=== PATIENT | female | born 1995 ===

== ENCOUNTER 2017-09-23 18:06 | Emergency (ER) | payer MEDICAID, OTHER ==
[2017-09-23 18:07] VITALS: BMI 21.9
[2017-09-23 18:17] VITALS: RESP 18; TEMP 98.2; O2SAT 100
[2017-09-23 18:30] VITALS: BP 106/79; PULSE 78
[2017-09-23] MEDS ORDERED: Morphine 4 MG/ML VIAL IVP STA (19:02)
[2017-09-23] MEDS ORDERED: Morphine 4 MG/ML VIAL ONE (19:12)
--- NOTE | 2017-09-23 19:53 | ED PDOC ---
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 Chest pain is located mostly on the left side. Associated with dizziness, nausea, vomiting, and difficulty taking a deep breath. Patient reports that she was seen in the ED one year ago for similar symptoms and was diagnosed with low potassium. Otherwise: (-) radiation, (-) diaphoresis, (-) pleuritic component, (-) ripping or tearing quality, (-) positional component, ( -) exertional component, (-) syncope, (-) calf swelling/pain, (-) neuro deficits , (-) fever, (-) cough, (-) trauma, (-) abdominal pain, (-) back pain, (-) recent travel. Of Note: The only medication that patient takes at home is injectable OCP once every 3 months. Past Medical History Reviewed: Historical Data, Nursing Documentation, Vital Signs Vital Signs: Last Vital Signs Temp 98.2 F 09/23/17 18:16 Pulse 78 09/23/17 18:28 Resp 18 09/23/17 18:16 BP 106/79 09/23/17 18:28 Pulse Ox 100 09/23/17 20:14 - Medical History PMH: Asthma Denies: Gastritis - Family History Family History: States: Unknown Family Hx Other Family History: Patient's father has heart disease - Immunization History Hx Tetanus Toxoid Vaccination: No Hx Influenza Vaccination: No Hx Pneumococcal Vaccination: No - Home Medications Home Medications: Ambulatory Orders Medication Instructions Recorded No Known Home Med 08/29/17 - Allergies Allergies/Adverse Reactions: Allergies Allergy/AdvReac Type Severity Reaction Status Date / Time amoxicillin Allergy RASH Verified 09/06/16 13:13 chicken derived Allergy Verified 08/29/17 15:24 Review of Systems ROS Statement: Except As Marked, All Systems Reviewed And Found Negative Constitutional: Negative for: Fever Cardiovascular: Positive for: Chest Pain (left-sided, upper sternal). Negative for: Edema Respiratory: Positive for: Other (difficulty taking a deep breath). Negative for: Cough Gastrointestinal: Positive for: Nausea, Vomiting. Negative for: Abdominal Pain Musculoskeletal: Negative for: Back Pain, Leg Pain Neurological: Positive for: Dizziness Physical Exam - Reviewed Nursing Documentation Reviewed: Yes Vital Signs Reviewed: Yes - Physical Exam Comments: GENERAL APPEARANCE: Patient is awake, alert, oriented x 3, in moderate painful distress. SKIN: Warm, dry; (-) cyanosis. EYES: (-) conjunctival pallor. ENMT: Mucous membranes moist. NECK: (-) tenderness, (-) stiffness, (-) lymphadenopathy, (-) JVD. CHEST AND RESPIRATORY: (-) rash, (-) chest wall tenderness. Lungs: (-) rales , (-) rhonchi, (-) wheezes, (-) rub; breath sounds equal bilaterally. HEART AND CARDIOVASCULAR: (-) irregularity; (-) murmur, (-) gallop, (-) rub. ABDOMEN AND GI: Soft; (-) distention, (-) tenderness, (-) palpable pulsatile mass. EXTREMITIES: (-) deformity; (-) edema, (-) calf tenderness. (+) distal pulses. NEURO AND PSYCH: Mental status as above. Cranial nerves grossly intact; strength symmetric. - ECG O2 Sat by Pulse Oximetry: 100 (RA) Pulse Ox Interpretation: Normal Medical Decision Making Medical Decision Making: Impression: Chest Pain Plan: * Chest X-Ray * EKG * CMP * CBC * PTT * PT * D-Dimer * Troponin I * Finger Stick * Urine Preg * Morphine 4 mg IV * Zofran 4 mg IV * Reevaluation 20:00 EKG : NSR at 62 bpm, (-) acute ST changes, as read by MARIA ESTHER. Labs & CXR pending. Case signed out to Leonid Machuca PA-C at 1999, pending labs, CXR and disposition. Scribe Attestation: Documented by Liliana Browning, acting as a scribe for Nat Tsang PA-C. Provider Scribe Attestation: All medical record entries made by the Scribe were at my direction and personally dictated by me. I have reviewed the chart and agree that the record accurately reflects my personal performance of the history, physical exam, medical decision making, and the department course for this patient. I have also personally directed, reviewed, and agree with the discharge instructions and disposition. 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
[2017-09-23 20:13] LABS: BASO # 0.1 K/uL (0.0-0.2); BASO % 0.9 % (0.0-2.0); EOS # 0.1 K/uL (0.0-0.7); EOS % 0.5 % (0.0-4.0); HEMOGLOBIN 14.7 g/dL (12.0-16.0); LYMPH # 2.9 K/uL (1.0-4.3); LYMPH % 31.4 % (20.0-40.0); MEAN CELL VOLUME 90.5 fl (81.0-99.0); MEAN CORPUSCULAR HEMOGLOBIN 31.2 pg (27.0-31.0); MEAN CORPUSCULAR HGB CONC 34.5 g/dL (33.0-37.0); MEAN PLATELET VOLUME 8.6 fl (7.2-11.7); MONO # 0.8 K/uL (0.0-0.8); MONO % 8.6 % (0.0-10.0); NEUT # 5.4 K/uL (1.8-7.0); NEUT % 58.6 % (50.0-75.0); RBC 4.7 Mil/uL (3.80-5.20); RED CELL DISTRIBUTION WIDTH 13.5 % (11.5-14.5); WHITE BLOOD COUNT 9.2 K/uL (4.8-10.8)
--- NOTE | 2017-09-23 20:14 | ED PDOC ---
- Laboratory Results Result Diagrams: 09/23/17 20:07 09/23/17 20:07 - ECG O2 Sat by Pulse Oximetry: 100 (RA) - Progress ED Course And Treament: 1999 Signed out to me pending labs. 2029 On my intial evaluation, pt. seen lying down c/o chest pain. 2100 Reports no relief in chest pain. Case d/w Dr. Kauffman who recommends CTA chest w/ IV contrast. 2238 CTA chest w/ IV contrast: No acute findings. Dilaudid 1mg IV ordered. Case d/w Dr. Dorsey, pt's PMD is Dr. Guido Hein, and states pt. does not require observation or admission in hospital and can be treated outpt as she does not have any risk factors. Also recommends NSAIDs Toradol 30mg IV ordered. Case d/w Dr. Kauffman who recommends repeat troponin at 0000 and if normal and pt.' s pain improves she can be dc'd with outpt f/u. 0037 Troponin is WNL. On re-evaluation, pt. sleeping comfortably. Easily arousable. Pt. reports complete relief of chest pain, SOB. Instructed to f/u with Dr. Hein. Medical Decision Making Medical Decision Makin:00 Patient signed out to me by Nat Tsang PA-C, pending labs and disposition. Scribe Attestation: Documented by Liliana Browning, acting as a scribe for Leonid Machuca PA-C. Provider Scribe Attestation: All medical record entries made by the Scribe were at my direction and personally dictated by me. I have reviewed the chart and agree that the record accurately reflects my personal performance of the history, physical exam, medical decision making, and the department course for this patient. I have also personally directed, reviewed, and agree with the discharge instructions and disposition. Disposition - Clinical Impression Clinical Impression: Chest wall pain - POA Present On Arrival: None - Disposition Referrals: Guiod Hein MD [Family Provider] - Disposition: Routine/Home Disposition Time: 00:37 Condition: IMPROVED Prescriptions: Naproxen [Naprosyn] 500 mg PO BID PRN #14 tab PRN Reason: Pain Instructions: Chest Pain (DC) Forms: [employer] ([place]er) Print Language: SAMI RIP Risk Score for UA/NSTEMI - RIP Risk Score Age > 64: NO 3 or more CAD Risk Factors: NO Known CAD (Stenosis greater than 50%): NO Aspirin use in past 7 days: NO Severe Angina: NO EKG ST changes greater than 0.5mm: NO Positive Cardiac Marker: NO RIP Score: 0 Risk %: 5% Wells Criteria for PE - Wells Criteria for Pulmonary Embolism Clinical Signs and Symptoms of DVT: No P.E is #1 Diagnosis, or Equally Likely: No Heart Rate >100: No Immobilization at least 3 days;Surgery previous 4 weeks: No Previous, objectively diagnosed PE or DVT: No Hemoptysis: No Malignancy w/treatment within 6 months, or palliative: No Total Score: 0
[2017-09-23 20:21] LABS: ALB/GLOB RATIO 1.4 (1.0-2.1); ALBUMIN 4.6 g/dL (3.5-5.0); ALT/SGPT 37 U/L (9-52); AST/SGOT 28 U/L (14-36); BLOOD UREA NITROGEN 16 mg/dl (7-17); CALCIUM 9.9 mg/dL (8.4-10.2); GFR AFRICAN-AMERICAN > 60; GFR NON-AFRICAN AMERICAN > 60
[2017-09-23 20:41] LABS: INR 1.1 (0.9-1.2); PARTIAL THROMBOPLASTIN TIME 28.5 Seconds (25.6-37.1); PROTHROMBIN TIME 12.4 Seconds (9.8-13.1)
[2017-09-23] MEDS ORDERED: Sodium Chloride 0.9% 100 ML ONE (21:21)
[2017-09-23] MEDS ORDERED: Iodixanol 320 MG/ML 100 ML BOTTLE IV ONE (21:21)
[2017-09-23 22:35] LABS: BARBITURATES, UR NEGATIVE (NEGATIVE); BENZODIAZEPINES, UR NEGATIVE (NEGATIVE); OPIATES, UR POSITIVE (NEGATIVE); PHENCYCLIDINE, UR NEGATIVE (NEGATIVE)
--- NOTE | 2017-09-23 22:39 | CT ---
EXAM: CT Angiography Chest With Intravenous Contrast EXAM DATE/TIME: 09/23/2017 9:00 PM CLINICAL HISTORY: 22 years old, female; Pain; Chest pain; Left-sided chest pain; Additional info: L sided chest pain. Sentp hy. Doc. TECHNIQUE: Axial computed tomographic angiography images of the chest with intravenous contrast using pulmonary embolism protocol. All CT scans at this facility use one or more dose reduction techniques, viz.: automated exposure control; ma/kV adjustment per patient size (including targeted exams where dose is matched to indication; i.e. head); or iterative reconstruction technique. MIP reconstructed images were created and reviewed. Coronal and sagittal reformatted images were created and reviewed. CONTRAST: 80 mL of [id number] administered intravenously. COMPARISON: No relevant prior studies available. FINDINGS: There is residual thymic tissue in the anterior mediastinum. No pulmonary embolism. No aortic dissection or aneurysm. No pleural or pericardial effussions. No pulmonary consolidation. IMPRESSION: No acute findings.
--- NOTE | 2017-09-24 08:13 | RAD ---
HISTORY: chest pain COMPARISON: Chest radiographs 07/27/2016 TECHNIQUE: Chest PA and lateral FINDINGS: LUNGS: No active pulmonary disease. PLEURA: No significant pleural effusion identified. No pneumothorax apparent. CARDIOVASCULAR: Normal. OSSEOUS STRUCTURES: No significant abnormalities. VISUALIZED UPPER ABDOMEN: Normal. OTHER FINDINGS: None. IMPRESSION: No interval acute cardiopulmonary disease appreciated.
--- NOTE | 2017-09-24 19:12 | CARD ---
APPROVED REPORT EKG Measurement Heart [id number] ID [id number] <Conclusion> Normal sinus rhythm Normal ECG
== END 2017-09-24 03:01 | disposition home or self-care (01) ==
LOC: SUPCPDRO 18:06 → H.ER 18:06
DX: R07.89 Other chest pain (principal); R42 Dizziness and giddiness
CPT/HCPCS: 71046; 71275; 80053; 80324; 80345; 80346; 80349; 80353; 80358; 80361; 81025; 83992; 84484; 85025; 85378; 85610; 85730; 93005; 96372; 96374; 96375; 96376; 99283; J1170; J1885; J2270; J2405; Q9967

== ENCOUNTER 2017-11-30 19:52 | Emergency (ER) | payer MEDICAID, OTHER ==
[2017-11-30 19:53] VITALS: BMI 21.9
[2017-11-30 21:06] VITALS: RESP 18; O2SAT 99
[2017-11-30] MEDS ORDERED: Iohexol 240 (50 ml) PO ONE (22:31)
[2017-11-30] MEDS ORDERED: Iohexol 240 (50 ml) ONE (22:37)
--- NOTE | 2017-11-30 22:40 | ED PDOC ---
HPI: Abdomen Time Seen by Provider: 11/30/17 22:17 Chief Complaint (Nursing): Abdominal Pain History Per: Patient Additional Complaint(s): Pt. states for the past 2 months she's had worsening b/l pelvic pain which has worsened over the past 2-3 days. States that she's also developed heavy vaginal bleeding (5-10 pads/day) and also has had white vaginal discharge. Pt. states she feels "something moving in my stomach." Pt. states she was seen in [facility] ED yesterday and was told she was not and had blood work and an US which were normal. Reports that she was prescribed naproxen but she did not take the medication. Last BM was yesterday and was normal. Denies nausea, vomiting, diarrhea, fever, previous abd surgeries, dysuria, hematuria. Abnormal Vaginal Bleeding: Yes Last Menstral Period: "2 years ago" : 1 Past Medical History Reviewed: Historical Data, Nursing Documentation, Vital Signs Vital Signs: Last Vital Signs Temp 98.4 F 12/01/17 03:14 Pulse 86 12/01/17 03:14 Resp 18 12/01/17 03:14 BP 122/72 12/01/17 03:14 Pulse Ox 99 12/01/17 03:14 - Medical History PMH: Asthma Denies: Gastritis - Surgical History Surgical History: No Surg Hx - Family History Family History: States: No Known Family Hx - Immunization History Hx Tetanus Toxoid Vaccination: No Hx Influenza Vaccination: No Hx Pneumococcal Vaccination: No - Home Medications Home Medications: Ambulatory Orders Medication Instructions Recorded Naproxen [Naprosyn] 500 mg PO BID PRN #14 tab 09/24/17 Naproxen [Naprosyn] 1 tab PO BID PRN #25 tab 11/29/17 Nitrofurantoin Macrocrystals 100 mg PO BID #14 cap 12/01/17 [Macrobid] - Allergies Allergies/Adverse Reactions: Allergies Allergy/AdvReac Type Severity Reaction Status Date / Time amoxicillin Allergy RASH Verified 11/29/17 15:36 chicken derived Allergy Verified 11/29/17 15:36 Review of Systems ROS Statement: Except As Marked, All Systems Reviewed And Found Negative Gastrointestinal: Positive for: Abdominal Pain Physical Exam - Physical Exam Appears: Positive for: Well, Non-toxic, No Acute Distress Skin: Positive for: Normal Color, Warm. Negative for: Rash Eye Exam: Positive for: Normal appearance Neck: Positive for: Normal, Painless ROM Cardiovascular/Chest: Positive for: Regular Rate, Rhythm Respiratory: Positive for: Normal Breath Sounds. Negative for: Respiratory Distress Gastrointestinal/Abdominal: Positive for: Normal Exam, Bowel Sounds, Soft. Negative for: Tenderness (to deep palpation), Organomegaly, Distended, Guarding , Rebound Back: Positive for: Normal Inspection. Negative for: L CVA Tenderness, R CVA Tenderness Neurologic/Psych: Positive for: Alert, Oriented - Laboratory Results Result Diagrams: 11/30/17 23:00 11/30/17 23:00 - ECG O2 Sat by Pulse Oximetry: 99 - Progress ED Course And Treament: Labs, CT abd/pelvis w/ IV and PO contrast, toradol 30mg IV ordered. Disposition - Clinical Impression Clinical Impression: UTI (urinary tract infection) - Disposition Referrals: Jose See [Outside] Condition: STABLE Additional Instructions: Follow up with [facility] for further evaluation. Return to ED immediately if symptoms worsen. Prescriptions: Nitrofurantoin Macrocrystals [Macrobid] 100 mg PO BID #14 cap Instructions: Urinary Tract Infection, Adult (DC) Forms: [employer] (Latvian) Print Language: JAMAICAN
[2017-11-30 23:09] LABS: BASO # 0.1 K/uL (0.0-0.2); BASO % 0.9 % (0.0-2.0); EOS # 0.1 K/uL (0.0-0.7); EOS % 1.2 % (0.0-4.0); HEMOGLOBIN 14.7 g/dL (12.0-16.0); LYMPH # 4.1 K/uL (1.0-4.3); LYMPH % 44.7 % (20.0-40.0); MEAN CELL VOLUME 90.9 fl (81.0-99.0); MEAN CORPUSCULAR HEMOGLOBIN 31.1 pg (27.0-31.0); MEAN CORPUSCULAR HGB CONC 34.3 g/dL (33.0-37.0); MEAN PLATELET VOLUME 8.6 fl (7.2-11.7); MONO # 0.8 K/uL (0.0-0.8); MONO % 9.2 % (0.0-10.0); NRBC % 0.1 % (0.0-0.0); RBC 4.72 Mil/uL (3.80-5.20); RED CELL DISTRIBUTION WIDTH 13.8 % (11.5-14.5); WHITE BLOOD COUNT 9.2 K/uL (4.8-10.8)
[2017-11-30 23:18] LABS: SPERM URINE RARE /hpf; SQUAMOUS EPITHIAL 6 /hpf (0-5); URINE BACTERIA OCC (<OCC); URINE BILIRUBIN NEGATIVE (NEGATIVE); URINE BLOOD SMALL (NEGATIVE); URINE CLARITY SLIGHTY-CLOUDY (Clear); URINE COLOR YELLOW (YELLOW); URINE GLUCOSE (UA) NEG (Normal); URINE LEUKOCYTE ESTERASE SMALL Leu/uL (Negative); URINE PROTEIN NEGATIVE (NEGATIVE)
[2017-11-30 23:19] LABS: ALB/GLOB RATIO 1.5 (1.0-2.1); ALBUMIN 4.7 g/dL (3.5-5.0); ALT/SGPT 39 U/L (9-52); AST/SGOT 31 U/L (14-36); BLOOD UREA NITROGEN 17 mg/dl (7-17); CALCIUM 9.7 mg/dL (8.4-10.2); GFR AFRICAN-AMERICAN > 60; GFR NON-AFRICAN AMERICAN > 60
[2017-11-30 23:20] LABS: INR 1.1 (0.9-1.2); PARTIAL THROMBOPLASTIN TIME 29.4 Seconds (25.6-37.1); PROTHROMBIN TIME 12.6 Seconds (9.8-13.1)
[2017-12-01] MEDS ORDERED: Sodium Chloride 0.9% 100 ML ONE (00:40)
[2017-12-01] MEDS ORDERED: Iohexol 300 100 ML IJ ONE (00:40)
--- NOTE | 2017-12-01 02:10 | CT ---
EXAM: CT Abdomen and Pelvis With Intravenous Contrast EXAM DATE/TIME: 11/30/2017 10:30 PM CLINICAL HISTORY: 22 years old, female; Pain; Other: Pelvic; Additional info: Pelvic pain TECHNIQUE: Axial computed tomography images of the abdomen and pelvis with intravenous contrast. All CT scans at this facility use one or more dose reduction techniques, viz.: automated exposure control; ma/kV adjustment per patient size (including targeted exams where dose is matched to indication; i.e. head); or iterative reconstruction technique. Coronal and sagittal reformatted images were created and reviewed. CONTRAST: 90 mL of [id number] administered intravenously. COMPARISON: No relevant prior studies available. FINDINGS: The liver is normal. The spleen is normal. The pancreas is normal. No gallstones. No perinephric stranding. Slight prominence of the proximal right ureter possibly chronic, however ureteral calculi cannot be excluded on this study secondary to the administration of both oral and intravenous contrast. Correlation with urinalysis may be helpful. The right colon is distended with stool consistent with mild constipation. Stool within the terminal ileum. A normal appendix is identified coronal images 37 - 45. Patient motion creates indistinctness of the urinary bladder and the cervix. No ovarian pathology identified. A few tiny calcifications are noted in the pelvis possible phleboliths. IMPRESSION: Mild right lung opacification. Fullness of the proximal right ureter as discussed above.
[2017-12-01 03:15] VITALS: BP 122/72; PULSE 86; TEMP 98.4
== END 2017-12-01 03:14 | disposition home or self-care (01) ==
LOC: H.ER 19:52
DX: N39.0 Urinary tract infection, site not specified (principal)
CPT/HCPCS: 74177; 80053; 81003; 81025; 84702; 84703; 85025; 85610; 85730; 86850; 86900; 87086; 87491; 87591; 96374; 99284; J1885; J2270; Q9966; Q9967

== ENCOUNTER 2018-09-21 06:41 | Emergency (ER) | payer MEDICAID, OTHER ==
[2018-09-21 07:03] VITALS: BMI 29.2
[2018-09-21 07:14] VITALS: RESP 18
[2018-09-21] MEDS ORDERED: Sodium Chloride 0.9% 1,000 ML IV STA (07:30)
[2018-09-21 08:01] LABS: BASO # 0.1 K/uL (0.0-0.2); BASO % 0.9 % (0.0-2.0); EOS % 0.5 % (0.0-4.0); HEMOGLOBIN 14.9 g/dL (12.0-16.0); LYMPH # 2.2 K/uL (1.0-4.3); LYMPH % 34.7 % (20.0-40.0); MEAN CELL VOLUME 90.4 fl (81.0-99.0); MEAN CORPUSCULAR HEMOGLOBIN 30.8 pg (27.0-31.0); MEAN PLATELET VOLUME 8.6 fl (7.2-11.7); MONO # 0.5 K/uL (0.0-0.8); MONO % 7.5 % (0.0-10.0); NEUT # 3.6 K/uL (1.8-7.0); NEUT % 56.4 % (50.0-75.0); RBC 4.84 Mil/uL (3.80-5.20); RED CELL DISTRIBUTION WIDTH 13.3 % (11.5-14.5); WHITE BLOOD COUNT 6.4 K/uL (4.8-10.8)
[2018-09-21 08:13] LABS: ALB/GLOB RATIO 1.5 (1.0-2.1); ALBUMIN 4.3 g/dL (3.5-5.0); ALT/SGPT 112 U/L (9-52); AST/SGOT 69 U/L (14-36); BLOOD UREA NITROGEN 17 mg/dl (7-17); CALCIUM 9.8 mg/dL (8.4-10.2); GFR NON-AFRICAN AMERICAN > 60; LIPASE 54 U/L (23-300)
--- NOTE | 2018-09-21 08:13 | ED PDOC ---
HPI: Abdomen Time Seen by Provider: 09/21/18 07:13 Chief Complaint (Nursing): Abdominal Pain Chief Complaint (Provider): Abdominal Pain History Per: Patient History/Exam Limitations: no limitations Onset/Duration Of Symptoms: Days (x4 days ) Current Symptoms Are (Timing): Still Present Location Of Pain/Discomfort: Diffuse Associated Symptoms: Chills, Nausea. denies: Fever, Vomiting, Diarrhea, Back Pain, Chest Pain, Constipation Additional Complaint(s): Amanda Milton is a 23 year old female with no past medical history, who presents to the emergency department complaining of diffuse and worsening abdominal pain, onset x4 days ago. Patient states she has had some dizziness, dysuria, nausea and chills. She further reports she had a bowel movement and denies vomiting, diarrhea, fever, chest pain, or back pain. Patient reports she works at a [employer] and is on her feet often. PMD: Otis Burnett Last Menstral Period: September 12 : 1 Para: 1 Past Medical History Reviewed: Historical Data, Nursing Documentation, Vital Signs Vital Signs: Last Vital Signs Temp 97.6 F 09/21/18 07:03 Pulse 60 09/21/18 07:03 Resp 18 09/21/18 07:03 BP 100/59 L 09/21/18 07:03 Pulse Ox 100 09/21/18 07:03 - Medical History PMH: Asthma Denies: Gastritis - Surgical History Surgical History: No Surg Hx - Family History Family History: States: Unknown Family Hx - Immunization History Hx Tetanus Toxoid Vaccination: No Hx Influenza Vaccination: No Hx Pneumococcal Vaccination: No - Home Medications Home Medications: Ambulatory Orders Medication Instructions Recorded Naproxen [Naprosyn] 500 mg PO BID PRN #14 tab 09/24/17 Naproxen [Naprosyn] 1 tab PO BID PRN #25 tab 11/29/17 Nitrofurantoin Macrocrystals 100 mg PO BID #14 cap 12/01/17 [Macrobid] - Allergies Allergies/Adverse Reactions: Allergies Allergy/AdvReac Type Severity Reaction Status Date / Time amoxicillin Allergy RASH Verified 11/29/17 15:36 chicken derived Allergy Verified 11/29/17 15:36 Review of Systems ROS Statement: Except As Marked, All Systems Reviewed And Found Negative Constitutional: Positive for: Chills. Negative for: Fever Cardiovascular: Negative for: Chest Pain Gastrointestinal: Positive for: Nausea, Abdominal Pain. Negative for: Vomiting, Diarrhea, Constipation Genitourinary Female: Positive for: Dysuria Musculoskeletal: Negative for: Back Pain Physical Exam - Reviewed Nursing Documentation Reviewed: Yes Vital Signs Reviewed: Yes - Physical Exam Appears: Positive for: Non-toxic, No Acute Distress Head Exam: Positive for: ATRAUMATIC, NORMOCEPHALIC Skin: Positive for: Normal Color, Warm, Dry Eye Exam: Positive for: Normal appearance, EOMI, PERRL ENT: Positive for: Normal ENT Inspection Cardiovascular/Chest: Positive for: Regular Rate, Rhythm. Negative for: Murmur Respiratory: Positive for: Normal Breath Sounds. Negative for: Respiratory Distress Gastrointestinal/Abdominal: Positive for: Bowel Sounds (present in all four quadrents), Tenderness (diffuse tenderness), Distended (mild) Extremity: Negative for: Swelling - Laboratory Results Result Diagrams: 09/21/18 07:37 09/21/18 07:37 - ECG O2 Sat by Pulse Oximetry: 100 (RA) Pulse Ox Interpretation: Normal Medical Decision Making Medical Decision Making: Time: 0730 Impression: abdominal pain --Differential diagnosis includes but is not limited to gastritis, UTI, and constipation Plan: --abdominal obstructive series x-ray --CMP --Lipase --ED urine --ED urine dipstick --CBC with differential --Urinalysis --Saline Lock --Pepcid 20 mg IVP --Sodium chloride 1,000 ml --Zofran 4 mg IVP Time: 0848 --Patient labs reveal elevated LFTs. White blood cell count is normal --X-ray shows non-specific bowel gas pattern and a large amount of stool. --Diagnosis: elevated liver enzymes and flatulence. --Patient will be discharged. Scribe Attestation: Documented by Hamilton Sims, acting as a scribe for Abby Guerrero MD. Provider Scribe Attestation: All medical record entries made by the Scribe were at my direction and personally dictated by me. I have reviewed the chart and agree that the record accurately reflects my personal performance of the history, physical exam, med ica decision making, and the department course for this patient. I have also personally directed, reviewed, and agree with the discharge instructions and disposition. Disposition - Clinical Impression Clinical Impression: Elevated liver enzymes, Flatulence - Patient ED Disposition Is Patient to be Admitted: No Doctor Will See Patient In The: Office Counseled Patient/Family Regarding: Diagnosis, Need For Followup - Disposition Referrals: Otis Burnett MD [Family Provider] - Disposition: Routine/Home Disposition Time: 08:48 Condition: STABLE Instructions: Liver Function Test, Gas and Bloating Forms: [facility] [employer] (Serbian) Print Language: KOREAN - POA Present On Arrival: None
[2018-09-21 08:22] LABS: SQUAMOUS EPITHIAL 4 /hpf (0-5); URINE BACTERIA OCC (<OCC); URINE BILIRUBIN NEGATIVE (NEGATIVE); URINE BLOOD NEGATIVE (NEGATIVE); URINE CLARITY SLIGHTY-CLOUDY (Clear); URINE COLOR YELLOW (YELLOW); URINE GLUCOSE (UA) NEG (NEGATIVE); URINE LEUKOCYTE ESTERASE NEG Leu/uL (Negative); URINE PROTEIN NEGATIVE (NEGATIVE); URINE UROBILINOGEN 0.2-1.0 mg/dL (0.2-1.0)
[2018-09-21 09:04] VITALS: BP 101/61; PULSE 64; TEMP 98.2; O2SAT 99
--- NOTE | 2018-09-21 12:25 | RAD ---
Date of service: 09/21/2018 PROCEDURE: Radiographs of the chest and abdomen (obstructive series) HISTORY: Abdominal pain. COMPARISON: No prior. TECHNIQUE: AP radiograph of the chest, with upright and supine radiographs of the abdomen. FINDINGS: CHEST: Lungs: Clear. Cardiovascular: Normal size heart. No pulmonary vascular congestion. No aortic atherosclerotic calcification present Pleura: No pleural fluid. No pneumothorax. Other findings: None. ABDOMEN AND PELVIS: Bowel: Constipation without fecal impaction or obstruction. Free air: None. Bones: Unremarkable. Other findings: None. IMPRESSION: Constipation without fecal impaction or obstruction..
== END 2018-09-21 09:02 | disposition home or self-care (01) ==
LOC: H.ER 06:41
DX: R74.8 Abnormal levels of other serum enzymes (principal); R14.3 Flatulence; J45.909 Unspecified asthma, uncomplicated
CPT/HCPCS: 74022; 80053; 81003; 81025; 83690; 85025; 96361; 96374; 96375; 99284; J2405; J7030